=== PATIENT | female | born 1985 | race Caucasian/White ===

== ENCOUNTER → 2019-01-18 14:01 | Outpatient (CLI) | payer MEDICAID ==
--- NOTE | 2019-01-23 10:06 | EC ---
PATIENT:MARY LOVE DATE OF SERVICE: 01/18/19 SEX: F MEDICAL RECORD: [id number] DATE OF : [birth year] LOCATION:[facility] AGE OF PATIENT: 33 ADMISSION DATE: 01/18/19 REFERRING PHYSICIAN: INTERPRETING PHYSICIAN: JIMENEZ BEACH MD ECHOCARDIOGRAM REPORT ECHO CHARGES 4 ECHO COMPLETE Date: 01/18/19 CLINICAL DIAGNOSIS: ARRHYTHMIAS/PALPITATIONS/ MURMUR ECHOCARDIOGRAPHIC MEASUREMENTS (adult normal given) AC root (d.<3.7cm) 3.1 cm LV Septum d (<1.2 cm> 0.8 cm Valve Excursion 2.0 cm LV Septum (systole) 1.3 cm Left Atria (s.<4.0cm> 2.8 cm LVPW d(<1.2cm) 0.9 cm RV (d.<2.3cm) 2.2 cm LVPW (sytole) 1.6 cm LV diastole(<5.6CM) 4.6 cm MV E-F(>70mm/sec) cm LV systole 2.4 cm LVOT Diameter 1.9 cm MV exc.(>10mm) cm Est.ejection fraction (50-75%) % DOPPLER: LVIT cm/sec A 81.0 cm/sec E 64.0 cm/sec LA cm/sec RVSP mmHg LVOT 105 cm/sec AOP1/2T m/s Asc. 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 Anthony TAPE# PACS Pericardial Effusion N DATE OF SERVICE: Adequate 2D, color flow, spectral Doppler, and M-Mode. No LVH. LV internal dimension is normal. Wall motion is normal. EF is greater than or equal to 55%. Aortic valve sclerosis without evidence of stenosis on Doppler interrogation. Left atrium is normal. Mitral valve shows no prolapse. Trace MR. Right-sided chambers grossly normal. Trace TR. TRANSINT:[id number] Voice Confirmation ID: [id number] DOCUMENT ID: [id number] ECHOCARDIOGRAM REPORT [id number] MARY LOVE,JIMENEZ Escobar MD at 1006 CC: [id number] DICTATION DATE: 01/18/19 161 HOME COMFORT ADVISOR: 01/19/19 0210 DEP CLI 01/18/19 [id number] [place] [address]
--- NOTE | 2019-01-23 10:07 | ST ---
PATIENT:MARY LOVE MEDICAL RECORD: [id number] SEX: F LOCATION:[facility] ORDER #: ADMISSION DATE: 01/18/19 AGE OF PATIENT: 33 REFERRING PHYSICIAN: INTERPRETING PHYSICIAN: JIMENEZ BEACH MD DATE OF SERVICE: 01/18/2019 Treadmill stress test Baseline ECG is normal. She exercised for 10 minutes on Lucio protocol, maximum heart rate 167 beats per minute, greater than 85% of max predicted. No ECG changes of ischemia. No symptoms of ischemia. Normal blood pressure response to exercise. No arrhythmias noted. Good exercise tolerance for age. TRANSINT:[id number] Voice Confirmation ID: [id number] DOCUMENT ID: [id number] JIMENEZ BEACH MD at 1007 CC: [id number] DICTATION DATE: 01/19/19 1122 OBSTETRICS SPECIALIST: 01/19/19 1326 DEP CLI 01/18/[address] [id number]
== END | disposition home or self-care (01) ==
LOC: D.HCCARDIO 14:01
PROVIDERS: ATTEND Internal Medicine Interventional Cardiology
DX: R00.2 Palpitations (principal)